=== PATIENT | male | born 1995 | race Caucasian/White ===

== ENCOUNTER 2016-05-26 16:49 | Emergency (ER) | payer OTHER ==
[~2016-05-26] VITALS: Ht 195.6 cm; Wt 93.0 kg
[~2016-05-26 16:49] MED LIST: CELEXA20 MG PO; DIVALPROEX SOD250 M1 PO; PERCOCET 5/31 TABLET PO; PREDNISONE20 MG PO; RISPERIDONE2 MG PO; TRAZODONE HCL50 MG PO; [UNRECOGNIZED DRUG - REMARK]
[2016-05-26] MEDS ORDERED: ULTRAM50 MG PO (18:48)
[2016-05-26] MEDS ORDERED: MOTRIN600 MG PO (18:48)
[2016-05-26 19:04] VITALS: BP 130/72
== END 2016-05-26 19:11 | disposition home or self-care (01) ==
LOC: EME → EDBD 16:49 → EME 16:49
DX: M54.2 Cervicalgia (principal); M54.6 Pain in thoracic spine; R51 Headache; Y04.0XXA Assault by unarmed brawl or fight, initial encounter; Y92.488 Other paved roadways as the place of occurrence of the external cause
CPT/HCPCS: 70450; 72125; 72128; 99281; 99284

== ENCOUNTER 2016-08-08 17:55 | Emergency (ER) | payer OTHER ==
[~2016-08-08] VITALS: Ht 193 cm; Wt 92.0 kg
[~2016-08-08 17:55] MED LIST changes: +MOTRIN600 MG PO; +ULTRAM50 MG PO
[2016-08-08 19:11] VITALS: BP 100/82
== END 2016-08-08 19:12 | disposition left against medical advice (07) ==
LOC: EME 17:55
DX: F19.10 Other psychoactive substance abuse, uncomplicated (principal); F17.200 Nicotine dependence, unspecified, uncomplicated
CPT/HCPCS: 80048; 82550; 85025; 99281; 99283; J1630; J2250